=== PATIENT | female | born 1945 | race Caucasian/White ===

== ENCOUNTER 2018-02-07 16:24 | Emergency (ER) | payer MEDICARE ==
[~2018-02-07] VITALS: Ht 157.5 cm; Wt 72.6 kg
[2018-02-07] MEDS ORDERED: HYDROCODONE/APAP 5MG-325MG TAB PO ONE (17:00)
[2018-02-07] MEDS ORDERED: ONDANSETRON HCL 4 MG ORAL DISINTEGRATING TAB PO ONE (17:15)
--- NOTE | 2018-02-07 18:34 | Diagnostic Imaging Report ---
EXAMINATION: Head CT HISTORY: Left-sided headache COMPARISON: None. TECHNIQUE: Multidetector axial images were obtained without contrast from the foramen magnum to the vertex . The images were reconstructed using brain and bone algorithms. Thin section brain images were reformatted into coronal and sagittal planes. Intravenous contrast: None. Motion/streaking artifact limits the evaluation of the skull base and posterior cranial fossa. FINDINGS: Parenchyma: 1. Few scattered and mildly confluent supratentorial white matter hypodensities, most likely nonspecific chronic microvascular ischemic changes. 2. No mass or hemorrhage. No CT evidence of acute territorial vascular insult. Extra-axial spaces:No abnormal density. No extra-axial fluid collections Brain volume: Normal for age. Ventricles: No hydrocephalus or displacement. Arteries: No density suggestive of thrombus. Dural sinuses: No abnormal density. Extra-axial spaces: No abnormal density. Foramen magnum: No mass, Chiari malformation, or basilar invagination. Sella: No obvious mass. Paranasal/mastoid sinuses: Imaged portions unremarkable. Skull/Scalp: No lytic or blastic lesions. No fractures. IMPRESSION: 1. No acute intracranial hemorrhage, mass or cortical infarct. 2. Mild chronic microvascular ischemic changes. Signed by: Dr. Eva Segal M.D. on 02/07/2018 6:30 PM
--- NOTE | 2018-02-07 18:40 | Diagnostic Imaging Report ---
EXAMINATION: CT of the cervical spine HISTORY: Left-sided neck pain COMPARISON: None available TECHNIQUE: Multidetector helical axial images were obtained without contrast from the foramen magnum to T1. The images were reconstructed using bone and soft tissue algorithms and were viewed in axial, sagittal and coronal planes. FINDINGS: Alignment: Normal alignment and lordosis Soft tissues: Normal Vertebrae: Normal height and density. No acute fracture, infection or neoplasm Degenerative changes: C1-C2: Normal C2-C3: Mild bilateral facet arthrosis without stenoses. C3-C4: Prominent facet arthrosis on the right with mild uncovertebral retrolisthesis. Severe right foraminal stenosis. C4-C5: Right greater than left facet arthropathy. Minimal anterolisthesis. No canal or foraminal stenosis. C5-C6: Facet arthroses on the right side without significant stenoses C6-C7: Large approximately 5 mm AP diameter central and right paracentral disc herniation is narrowing the spinal canal and the right lateral recesses. C7-T1: Possible central disc herniation, streak artifact limits evaluation at this level. IMPRESSION: 1. No acute cervical spine fractures or dislocations. 2. Age indeterminate disc herniation at C6-7. 3. Chronic multilevel degenerative changes as detailed above. Signed by: Dr. Eva Segal M.D. on 02/07/2018 6:37 PM
[2018-02-07 18:52] VITALS: BP 120/82
[2018-02-07] MEDS ORDERED: TEGRETOL200 MG PO (19:00)
[2018-02-07] MEDS ORDERED: fioricet PO (19:00)
[2018-02-07] MEDS ORDERED: ROBAXIN-750750 MG PO (19:00)
== END 2018-02-07 19:06 | disposition home or self-care (01) ==
LOC: ER 16:24
DX: G43.909 Migraine, unspecified, not intractable, without status migrainosus (principal); G50.0 Trigeminal neuralgia
CPT/HCPCS: 70450; 72125; 99283

== ENCOUNTER → 2018-03-03 | Outpatient (CLI) | payer MEDICARE ==
[~2018-03-03] MED LIST: ROBAXIN-750750 MG PO; TEGRETOL200 MG PO; fioricet PO
--- NOTE | 2018-03-03 16:31 | Diagnostic Imaging Report ---
Exam: Brain-skull base MRI without IV contrast History: Facial pain, trigeminal neuralgia Comparison studies: Head CT 02/07/2018. Technique: Axial DWI, axial T2 FLAIR, axial T2 and axial T2*GRE through the whole brain and sagittal T1, coronal T2 FLAIR and 3-D T2 and T1 through the skull base. Intravenous contrast: None Findings: Scalp: Normal in signal. No masses. Bone marrow: Normal in signal intensity. Brain sulci: Appropriate for age. Ventricles: Normal in size. No hydrocephalus. Extra axial spaces: No mass, no fluid collection. Parenchyma: Noted mass, hemorrhage or acute ischemia. A few scattered T2 FLAIR hyperintense foci in the supratentorial white matter are nonspecific but most compatible with chronic microvascular ischemic changes. Trigeminal nerves: Somewhat limited evaluation the absence of IV contrast. No gross abnormalities identified along segments of the trigeminal nerves from the root entry zones to the included extra foraminal segments. IACs and labyrinths: No mass, no signal abnormalities. Suprasellar region: No abnormalities. Craniocervical junction: Patent foramen magnum. No Chiari malformation. Vessels: Normal flow-voids in the arteries and sinuses. IMPRESSION: 1. Mild supratentorial microvascular ischemic changes. 2. No gross abnormalities identified along the included segments of the trigeminal nerves. Moreover, evaluation is somewhat limited in the absence of IV contrast. Signed by: Dr. Faraz Gray M.D. on 03/03/2018 4:28 PM
== END ==
LOC: MRI 09:10
PROVIDERS: ATTEND Psychiatry & Neurology Clinical Neurophysiology
DX: G50.0 Trigeminal neuralgia (principal)
CPT/HCPCS: 70551

== ENCOUNTER 2020-04-28 10:02 | Emergency (ER) | payer MEDICARE ==
[~2020-04-28] VITALS: Ht 157.5 cm; Wt 70.3 kg
[2020-04-28] MEDS ORDERED: SODIUM CHLORIDE 0.9% 1000ML 1,000 ML IV STA (10:25)
[2020-04-28] MEDS ORDERED: DIPHENHYDRAMINE HCL INJ 50 MG/ML VIAL IV NR (10:30)
[2020-04-28] MEDS ORDERED: KETOROLAC TROMETHAMINE 30 MG/ML VIAL IV NR (10:30)
[2020-04-28] MEDS ORDERED: METOCLOPRAMIDE HCL 10 MG/2ML VIAL IV NR (10:30)
--- NOTE | 2020-04-28 11:10 | NUR ---
REC'D PT IN WALKING ROUNDS
--- NOTE | 2020-04-28 11:21 | Diagnostic Imaging Report ---
Exam: Head CT without contrast History: Headache Comparison studies: Brain MRI 03/03/[address] 02/07/2018. Technique: Axial images were obtained from the skull base to the vertex. Coronal and sagittal images reconstructed from the axial data. Dose modulation, iterative reconstruction, and/or weight based adjustment of the mA/kV was utilized to reduce the radiation dose to as low as reasonably achievable. Radiation dose: Total DLP: 921.4 mGy*cm. Estimated effective dose: DLP x 0.015 Intravenous contrast: None Findings: Scalp: No abnormalities. Bones: No fractures, blastic or lytic lesions. Brain sulci: Mildly prominent. Ventricles: Mild extra dilatation. No hydrocephalus. Extra-axial spaces: No masses, no fluid collection. Parenchyma: No mass, acute hemorrhage or acute cortical vascular insults. A few scattered hypodensities in the supratentorial white matter as well as mildly confluent hypodensities in the deep right parietal white matter are nonspecific but most compatible with chronic small vessel ischemic changes. Sellar/suprasellar region: No abnormalities. Craniocervical junction: Patent foramen magnum. No Chiari one malformation. Included paranasal sinuses: Clear. Middle ear cavities and mastoids: Clear. Incidental findings: Atherosclerotic calcifications in the carotid siphons. IMPRESSION: No acute intracranial abnormalities. Chronic findings: 1. Mild generalized parenchymal volume loss. 2. Mild microvascular ischemic changes Signed by: Dr. Faraz Gray M.D. on 04/28/2020 11:18 AM
--- NOTE | 2020-04-28 11:33 | NUR ---
LAB IN ROOM
--- NOTE | 2020-04-28 11:41 | Emergency Department Note ---
History of Present Illnes History of Present Illness Chief Complaint: Neurological History of Present Illness This is a 74 year old female pt c/o "trigeminal headache", pt states that her headache started on with pain radiating to the back of the neck, pt also verbalizes nausea, vomiting and abdominal pain, pt denies having blood pressure problems but BP during triage was 179/80, no neuro deficits noted. Historian: Patient Embedder Required: No Onset (how long ago): day(s) (2) Location: left face/head Quality: pain Radiation: Reports non-radiation Severity: moderate Onset quality: gradual Timing of current episode: intermittent Progression: waxing and waning Chronicity: chronic Context: Denies recent illness Relieving factors: none Exacerbating factors: none Associated symptoms: Reports denies other symptoms Treatments prior to arrival: none Past Medical/Family History Physician Review I have reviewed the patient's past medical and family history. Any updates have been documented here. Past Medical History Recent Fever: No Clinical Suspicion of Infectio: No New/Unexplained Change in Ment: No Past Medical History: COPD, Asthma, Osteoarthritis Past Surgical History: Hysterectomy Other Surgery: RT SHOULDER BILATERAL BUNIONS Social History Smoking Cessation: Former smoker Counseling Performed: No Alcohol Use: None Any Illegal Drug Use: No TB Exposure/Symptoms: No Physically hurt or threatened: No Family History Family history of heart diseas: No Other Last Tetanus: UNK Any Pre-Existing Lines (PICC,: No Review of Systems Review of Systems Constitutional: Reports no symptoms EENTM: Reports no symptoms Cardiovascular: Reports no symptoms Respiratory: Reports no symptoms Gastrointestinal: Reports no symptoms Genitourinary: Reports no symptoms Musculoskeletal: Reports no symptoms Integumentary: Reports no symptoms Neurological: Reports as per HPI, Reports headache Psychological: Reports no symptoms Endocrine: Reports no symptoms Hematological/Lymphatic: Reports no symptoms Physical Exam Related Data Allergies: Coded Allergies: morphine (Verified Allergy, Unknown, 02/07/18) prednisone (Verified Allergy, Unknown, 02/07/18) Triage Vital Signs Vital Signs Date Time Temp Pulse Resp B/P (MAP) Pulse Ox O2 Delivery O2 Flow Rate FiO2 04/28/20 10:14 98.0 67 18 176/89 100 Room Air Vital signs reviewed: Yes Physical Exam CONSTITUTIONAL Constitutional: Present well-developed, Present well-nourished HENT HENT: Present normocephalic, Present atraumatic, Present oropharynx clear/moist, Present nose normal, Present other (mild tenderness left temporal artery area but also at trigeminal nerve left face) HENT L/R: Present left ext ear normal, Present right ext ear normal, Present other (no ocular bruit) EYES Eyes: Reports PERRL, Reports conjunctivae normal NECK Neck: Present ROM normal; Absent carotid bruit PULMONARY Pulmonary: Present effort normal, Present breath sounds normal CARDIOVASCULAR Cardiovascular: Present regular rhythm, Present heart sounds normal, Present capillary refill normal, Present normal rate GASTROINTESTINAL Abdominal: Present soft, Present nontender, Present bowel sounds normal GENITOURINARY Genitourinary: Present exam deferred SKIN Skin: Present warm, Present dry MUSCULOSKELETAL Musculoskeletal: Present ROM normal NEUROLOGICAL Neurological: Present alert, Present oriented x 3, Present DTRs normal, Present no gross motor or sensory deficits; Absent cranial nerve deficit, Absent sensory deficit, Absent abnormal gait, Absent weakness PSYCHOLOGICAL Psychological: Present mood/affect normal, Present judgement normal Results Laboratory Lab results reviewed: Yes Imaging Imaging results reviewed: Yes Impressions Exam: Head CT without contrast History: Headache Comparison studies: Brain MRI 03/03/[address] 02/07/2018. Technique: Axial images were obtained from the skull base to the vertex. Coronal and sagittal images reconstructed from the axial data. Dose modulation, iterative reconstruction, and/or weight based adjustment of the mA/kV was utilized to reduce the radiation dose to as low as reasonably achievable. Radiation dose: Total DLP: 921.4 mGy*cm. Estimated effective dose: DLP x 0.015 Intravenous contrast: None Findings: Scalp: No abnormalities. Bones: No fractures, blastic or lytic lesions. Brain sulci: Mildly prominent. Ventricles: Mild extra dilatation. No hydrocephalus. Extra-axial spaces: No masses, no fluid collection. Parenchyma: No mass, acute hemorrhage or acute cortical vascular insults. A few scattered hypodensities in the supratentorial white matter as well as mildly confluent hypodensities in the deep right parietal white matter are nonspecific but most compatible with chronic small vessel ischemic changes. Sellar/suprasellar region: No abnormalities. Craniocervical junction: Patent foramen magnum. No Chiari one malformation. Included paranasal sinuses: Clear. Middle ear cavities and mastoids: Clear. Incidental findings: Atherosclerotic calcifications in the carotid siphons. IMPRESSION: No acute intracranial abnormalities. Chronic findings: 1. Mild generalized parenchymal volume loss. 2. Mild microvascular ischemic changes Signed by: Dr. Faraz Gray M.D. on 04/28/2020 11:18 AM Assessment & Plan Medical Decision Making MDM headache, similar to her trigeminal nerve pain in past but states headache is worse now - will get CT brain r/o cerebral bleed/mass, check ESR r/o temporal arteritis Reassessment Reassessment PT IMPROVED - DC HOME, PT COULD NOT TOLERATE CARBAMAZEPINE IN PAST, HAS [facility]CO AT HOME, WILL GIVE RX FOR BACLOFEN, F/U WITH PCP AND DR BUDDY TORRES Assessment & Plan Final Impression: (1) Headache (2) Trigeminal neuralgia of left side of face Depart Disposition: HOME, SELF-CARE Last Vital Signs Date Time Temp Pulse Resp B/P (MAP) Pulse Ox O2 Delivery O2 Flow Rate FiO2 04/28/20 11:33 61 20 171/95 98 Room Air 04/28/20 10:14 98.0 Home Meds Reported Medications Carbamazepine (TEGRETOL) 200 Mg Tablet, 200 MG PO BID 02/07/18 [fioricet] 1-2 TAB No Conflict Check, 1-2 TAB PO Q6H PRN for HEADACHE 02/07/18 Methocarbamol (ROBAXIN-750) 750 Mg Tablet, 750 MG PO Q6H PRN for PAIN 02/07/18 Medications in the ED Ketorolac Tromethamine 30 mg ONCE IV Last administered on 04/28/20at 11:08; Admin Dose 30 MG; Start 04/28/20 at 10:30; Stop 04/28/20 at 11:59 Sodium Chloride 1,000 ml @ 0 mls/hr Q0M STAT IV Last administered on 04/28/20at 11:33; Admin Dose 999 MLS/HR; Start 04/28/20 at 10:25; Stop 04/28/20 at 11:28; Status DC Metoclopramide HCl 5 mg ONCE IV Last administered on 04/28/20at 11:08; Admin Dose 5 MG; Start 04/28/20 at 10:30; Stop 04/28/20 at 11:59 Diphenhydramine HCl 25 mg NOW IV Last administered on 04/28/20at 11:08; Admin Dose 25 MG; Start 04/28/20 at 10:30; Stop 04/28/20 at 11:59 ELIZABETH FLETCHER MD Apr 28, 2020 11:41
[2020-04-28 11:46] LABS: BASOPHILS # (AUTO) 0.1 (0.0-0.1); BASOPHILS % 0.9 % (0.0-1.0); EOSINOPHILS # (AUTO) 0.1 (0.0-0.4); EOSINOPHILS % 1.3 % (0.0-6.0); HEMATOCRIT 40.1 % (34.2-44.1); HEMOGLOBIN 13.3 g/dL (12.0-16.0); LYMPHOCYTES # (AUTO) 0.9 (1.0-3.2); LYMPHOCYTES % 8.5 % (18.0-39.1); MEAN CORPUSCULAR HEMOGLOBIN 30.1 pg (28-32); MEAN CORPUSCULAR HGB CONC 33.2 g/dL (31-35); MEAN CORPUSCULAR VOLUME 90.7 fL (81-99); MONOCYTES # (AUTO) 0.5 (0.2-0.8); MONOCYTES % 4.5 % (4.4-11.3); NEUTROPHILS # (AUTO) 8.7 (2.1-6.9); NEUTROPHILS % 84.5 % (38.7-80.0); PLATELET COUNT 233 x10e3/uL (140-360); RED BLOOD COUNT 4.42 x10e6/uL (3.6-5.1); RED CELL DISTRIBUTION WIDTH 13.2 % (11.7-14.4)
[2020-04-28 11:59] LABS: INR 0.9; PROTHROMBIN TIME 12.6 seconds (11.9-14.5)
[2020-04-28 12:00] LABS: PARTIAL THROMBOPLASTIN TIME 27.2 seconds (23.8-35.5)
[2020-04-28] MEDS ORDERED: FOSPHENYTOIN 50 MG/ML VIAL IV NR (12:00)
[2020-04-28] MEDS ORDERED: BACLOFEN 10 MG TAB PO NR (12:00)
[2020-04-28 12:06] LABS: ALBUMIN 4.3 g/dL (3.5-5.0); ALBUMIN/GLOBULIN RATIO 1.7 (0.8-2.0); ANION GAP 14.4 mmol/L (8-16); CALCIUM 9.2 mg/dL (8.4-10.2); CREATININE, SERUM 0.96 mg/dL (0.57-1.11); POTASSIUM 4.4 mmol/L (3.5-5.1)
[2020-04-28 12:47] LABS: ERYTHROCYTE SEDIMENTATION RATE 7 mm/hr (0-20)
[2020-04-28] MEDS ORDERED: ALBUTEROL/IPRATROPIUM 3 ML NEB NEB NR (13:00)
[2020-04-28] MEDS ORDERED: ALBUTEROL/IPRATROPIUM 3 ML NEB NEB ONE (13:00)
--- NOTE | 2020-04-28 13:07 | NUR ---
R.T.IN ROOM AT THIS TIME
== END 2020-04-28 13:39 | disposition home or self-care (01) ==
LOC: ER 10:15
DX: G50.0 Trigeminal neuralgia (principal); J44.9 Chronic obstructive pulmonary disease, unspecified; J45.909 Unspecified asthma, uncomplicated
CPT/HCPCS: 36415; 70450; 80053; 85025; 85610; 85651; 85730; 94640; 99284; J1200; J1885; J2765; J7030; Q2009

== ENCOUNTER 2024-09-17 19:04 | Emergency (ER) | payer MEDICARE ==
[~2024-09-17] VITALS: Ht 157.5 cm; Wt 70.3 kg
[2024-09-17 19:56] VITALS: PULSE 67; RESP 20; TEMP 98; O2SAT 100
[2024-09-17] MEDS: SODIUM CHLORIDE 0.9% 1000ML 1,000 ML IV STA (20:16)
[2024-09-17] MEDS: MECLIZINE HCL 12.5 MG TAB PO STA (20:16)
[2024-09-17 20:34] LABS: BASOPHILS # (AUTO) 0.1 (0.0-0.1); BASOPHILS % 1.1 % (0.0-1.0); EOSINOPHILS # (AUTO) 0.3 (0.0-0.4); EOSINOPHILS % 4.7 % (0.0-6.0); HEMATOCRIT 39.3 % (34.2-44.1); HEMOGLOBIN 13.2 g/dL (12.0-16.0); LYMPHOCYTES # (AUTO) 1.8 (1.0-3.2); LYMPHOCYTES % 29.7 % (18.0-39.1); MEAN CORPUSCULAR HEMOGLOBIN 31.6 pg (28-32); MEAN CORPUSCULAR HGB CONC 33.6 g/dL (31-35); MONOCYTES # (AUTO) 0.6 (0.2-0.8); MONOCYTES % 10.2 % (4.4-11.3); NEUTROPHILS # (AUTO) 3.4 (2.1-6.9); NEUTROPHILS % 54.1 % (38.7-80.0); PLATELET COUNT 222 x10e3/uL (140-360); RED BLOOD COUNT 4.18 x10e6/uL (3.6-5.1); RED CELL DISTRIBUTION WIDTH 13.1 % (11.7-14.4)
[2024-09-17 20:48] LABS: INR 0.86; PROTHROMBIN TIME 12.3 seconds (11.9-14.5)
[2024-09-17 20:58] LABS: ALANINE AMINOTRANSFERASE 16 IU/L (0-55); ALBUMIN 4.1 g/dL (3.5-5.0); ALBUMIN/GLOBULIN RATIO 1.5 (0.8-2.0); ALKALINE PHOSPHATASE 82 IU/L (40-150); ANION GAP 12.1 mmol/L (8-16); BILIRUBIN,TOTAL 0.3 mg/dL (0.2-1.2); BLOOD UREA NITROGEN 18 mg/dL (7-26); BUN/CREATININE RATIO 15 (6-25); CALCIUM 9.7 mg/dL (8.4-10.2); CARBON DIOXIDE 30 mmol/L (22-29); CHLORIDE 103 mmol/L (98-107); CREATINE KINASE 112 IU/L (29-168); CREATININE, SERUM 1.24 mg/dL (0.57-1.11); EST GLOMERULAR FILTRATION RATE 44 ML/MIN (>=60); GLUCOSE 100 mg/dL (74-118); LIPASE 44 U/L (8-78); POTASSIUM 4.1 mmol/L (3.5-5.1); SODIUM 141 mmol/L (136-145); TOTAL PROTEIN 6.8 g/dL (6.5-8.1)
[2024-09-17 21:06] LABS: TROPONIN I < 0.001 ng/mL (0-0.300)
[2024-09-17] MEDS ORDERED: IOPAMIDOL 370 MG/ML 100 ML INFUS..BTL INJ ONE (21:11)
== END 2024-09-17 23:35 | disposition home or self-care (01) ==
LOC: ER 19:19
DX: R42 Dizziness and giddiness (principal); J44.9 Chronic obstructive pulmonary disease, unspecified; J45.909 Unspecified asthma, uncomplicated; M19.09 Primary osteoarthritis, other specified site; R94.31 Abnormal electrocardiogram [ECG] [EKG]
CPT/HCPCS: 36415; 70496; 70498; 80053; 82550; 83690; 83880; 84484; 85025; 85610; 93005; 99283; J7030; J8597; Q9967